=== PATIENT | male | born 1985 | race Caucasian/White ===

== ENCOUNTER 2025-03-30 00:57 | Emergency (ER) | payer SELFPAY ==
[~2025-03-30] VITALS: Ht 170.2 cm; Wt 84.0 kg
[2025-03-30 01:03] VITALS: BP 130/80; PULSE 108; RESP 18; TEMP 36.6; O2SAT 100
[2025-03-30] MEDS: TRANEXAMIC ACID 1,000MG/10ML TP ONE ×2 (02:20→03:52)
== END 2025-03-30 04:01 | disposition home or self-care (01) ==
LOC: ER 00:57
DX: K06.8 Other specified disorders of gingiva and edentulous alveolar ridge (principal)
CPT/HCPCS: 99283